=== PATIENT | male | born 1995 | race Native Hawaiian/Other Pacific Islander ===

== ENCOUNTER 2022-09-18 07:09 | Emergency (ER) | payer OTHER ==
[~2022-09-18] VITALS: Ht 165.1 cm; Wt 76.8 kg
[2022-09-18] MEDS ORDERED: IBUP200T46 PO (07:17)
[2022-09-18] MEDS ORDERED: NS 1,000 ML IV ONE (07:30)
[2022-09-18] MEDS ORDERED: KETOROLAC 30 MG/ML 1ML VIAL IV ONE (07:30)
[2022-09-18] MEDS ORDERED: ONDANSETRON 4MG 2ML VIAL IV ONE (07:30)
[2022-09-18 07:52] LABS: BASO % 0.6 % (0.0-1.0); EOS # 0.1 10^3/uL (0.0-0.5); EOS % 1.1 % (0.0-3.0); HEMATOCRIT 43.2 % (42.0-52.0); HEMOGLOBIN 14.5 g/dl (13.5-17.5); LYMPH % 30.2 % (24.0-44.0); MEAN CORPUSCULAR HEMOGLOBIN 29.4 pg (27.0-33.0); MEAN CORPUSCULAR HGB CONC 33.6 g/dl (32.0-36.5); MEAN CORPUSCULAR VOLUME 87.4 fl (80.0-96.0); MONO # 0.7 10^3/uL (0.0-0.8); MONO % 10.4 % (2.0-8.0); NEUTROPHILS # 3.7 10^3/uL (1.5-8.5); NEUTROPHILS % 57.2 % (36.0-66.0); PLATELET COUNT, AUTOMATED 237 10^3/uL (150-450); RED BLOOD COUNT 4.94 10^6/uL (4.30-6.10); WHITE BLOOD COUNT 6.5 10^3/uL (4.0-10.0)
[2022-09-18] MEDS ORDERED: ISOVUE-370 76% 100ML VIAL As Ordered ONE (08:02)
[2022-09-18 08:15] LABS: LIPASE 52 U/L (12-53)
[2022-09-18 08:17] LABS: ALKALINE PHOSPHATASE 67 U/L (46-116); ALT/SGPT 24 U/L (7.0-40); AST/SGOT 15 U/L (<34); BILIRUBIN,DIRECT < 0.1 MG/DL (<0.4); BILIRUBIN,TOTAL 0.3 MG/DL (0.3-1.2); TOTAL PROTEIN 6.6 G/DL (5.7-8.2)
[2022-09-18] MEDS ORDERED: ONDA4TAB6 PO (08:38)
[2022-09-18 08:57] VITALS: BP 123/75; TEMP 97.5; O2SAT 100
== END 2022-09-18 09:00 | disposition home or self-care (01) ==
LOC: M ED 07:09
DX: A08.4 Viral intestinal infection, unspecified (principal); F10.10 Alcohol abuse, uncomplicated; Z79.83 Long term (current) use of bisphosphonates; Z79.1 Long term (current) use of non-steroidal anti-inflammatories (NSAID)
CPT/HCPCS: 74177; 80047; 80076; 83605; 83690; 85025; 96361; 96374; 99284; J1885; J2405; Q9967

== ENCOUNTER 2024-10-03 14:41 | Emergency (ER) | payer OTHER ==
[~2024-10-03] VITALS: Ht 165.1 cm; Wt 74.3 kg
[~2024-10-03 14:41] MED LIST: IBUP200T46 PO; ONDA-282 PO
[2024-10-03] MEDS ORDERED: CEPH500C PO (17:00)
[2024-10-03] MEDS: CEPHALEXIN 500 MG CAP PO ONE (17:08)
[2024-10-03] MEDS: IBUPROFEN 600 MG TAB PO ONE (17:09)
[2024-10-03 17:13] VITALS: BP 112/73; TEMP 96.8; O2SAT 98
== END 2024-10-03 17:16 | disposition home or self-care (01) ==
LOC: M ED 14:41
DX: L03.116 Cellulitis of left lower limb (principal); F10.10 Alcohol abuse, uncomplicated; Z79.2 Long term (current) use of antibiotics